=== PATIENT | female | born 2000 | race Caucasian/White ===

== ENCOUNTER 2018-06-02 17:03 | Emergency (ER) | payer SELFPAY ==
--- NOTE | 2018-06-02 17:57 | EDM.PDOC ---
ED HPI GENERAL MEDICAL PROBLEM - General Chief Complaint: Abdominal Pain Stated Complaint: ABDOMINAL PAIN Time Seen by Provider: 06/02/18 17:53 Source of Information: Reports: Patient History Limitations: Reports: No Limitations - History of Present Illness INITIAL COMMENTS - FREE TEXT/NARRATIVE: HISTORY AND PHYSICAL: History of present illness: Patient is a 17-year-old female here with complaint of lower abdominal pain x 8 days. She states it started after having intercourse and has persisted since then. She states she has had vaginal spotting as well that gets worse after intercourse. She states she doesn't get periods and hasn't had one in 6 years since she has been on Depo. She has not received Depo in 7 months. She is not using any form of contraceptive at this time. States she isn't trying to prevent . She denies fevers, chills, nausea, vomiting, diarrhea, constipation. Review of systems: As per history of present illness and below otherwise all systems reviewed and negative. Past medical history: As per history of present illness and as reviewed below otherwise noncontributory. Surgical history: As per history of present illness and as reviewed below otherwise noncontributory. Social history: No reported history of drug or alcohol abuse. Family history: As per history of present illness and as reviewed below otherwise noncontributory. Physical exam: General: Patient sitting comfortably in no acute distress and nontoxic appearing HEENT: Atraumatic, normocephalic, pupils reactive, negative for conjunctival pallor or scleral icterus, mucous membranes moist, throat clear, neck supple, nontender, trachea midline. No meningeal signs. Lungs: Clear to auscultation, breath sounds equal bilaterally, chest nontender. Heart: S1S2, regular, negative for clicks, rubs, or overt murmur. Abdomen: Soft, nondistended, nontender. Negative for masses or hepatosplenomegaly. Negative for costovertebral tenderness. Pelvis: Stable nontender. Genitourinary: Deferred. Rectal: Deferred. Extremities: Atraumatic, negative for cords or calf pain. Neurovascular unremarkable. Neuro: Awake, alert, oriented. Cranial nerves II through XII unremarkable. Cerebellum unremarkable. Motor and sensory unremarkable throughout. Exam nonfocal. Notes: Diagnostics: UA, urine hcg, pelvic US Therapeutics: Toradol 30mg IM Prescriptions: None Impression: Ovarian cyst, abdominal pain Plan: 1. Motrin or tylenol as needed 2. Follow up with Policy Adviser, please call number provided to schedule appointment 3. Return to ED as needed as discussed Definitive disposition and diagnosis as appropriate pending reevaluation and review of above. Lower abdomen Pain Score (Numeric/FACES): 9 - Related Data Allergies Allergy/AdvReac Type Severity Reaction Status Date / Time lurasidone [From Latuda] Allergy Anxiety Verified 06/02/18 17:40 Home Meds: Home Meds clonazePAM [Klonopin] 1 mg PO DAILY 06/02/18 [History] lamoTRIgine [Lamictal] 100 mg PO DAILY 06/02/18 [History] Past Medical History Psychiatric History: Reports: Anxiety, Depression, Mood Swings - Past Surgical History HEENT Surgical History: Reports: Adenoidectomy, Tonsillectomy Social & Family History - Tobacco Use Smoking Status *Q: Current Every Day Smoker Years of Tobacco use: 5 Packs/Tins Daily: 0.5 - Caffeine Use Caffeine Use: Reports: Coffee, Energy Drinks, Soda, Tea - Recreational Drug Use Recreational Drug Use: Yes Drug Use in Last 12 Months: Yes Recreational Drug Type: Reports: Marijuana/Hashish Recreational Drug Use Frequency: Daily ED ROS GENERAL - Review of Systems Review Of Systems: ROS reveals no pertinent complaints other than HPI. ED EXAM, GI/ABD - Physical Exam Exam: See Below (see dictation) Course - Vital Signs Last Recorded V/S: Last Vital Signs Temp 99.1 F 06/02/18 17:36 Pulse 89 06/02/18 17:36 Resp 16 06/02/18 17:36 BP 122/78 06/02/18 17:36 Pulse Ox 99 06/02/18 17:36 - Orders/Labs/Meds Orders: Active Orders 24 hr Category Date Time Status CULTURE URINE [RM] Stat Lab 06/02/18 17:47 Received Labs: Laboratory Tests 06/02/18 06/02/18 Range/Units 17:47 17:47 Urine Color YELLOW Urine Appearance CLEAR Urine pH 6.0 (5.0-8.0) Ur Specific [place] 1.015 (1.001-1.035) Urine Protein NEGATIVE (NEGATIVE) mg/dL Urine Glucose (UA) NEGATIVE (NEGATIVE) mg/dL Urine Ketones NEGATIVE (NEGATIVE) mg/dL Urine Occult Blood MODERATE H (NEGATIVE) Urine Nitrite NEGATIVE (NEGATIVE) Urine Bilirubin NEGATIVE (NEGATIVE) Urine Urobilinogen 0.2 (<2.0) EU/dL Ur Leukocyte Esterase NEGATIVE (NEGATIVE) Urine RBC 0-2 (0-2/HPF) Urine WBC 8-10 (0-5/HPF) Ur Epithelial Cells RARE (NONE-FEW) Urine Bacteria RARE (NEGATIVE) Urine HCG, Qual NEGATIVE (NEGATIVE) Meds: Medications Discontinued Medications Generic Name Dose Route Start Last Admin Trade Name Sherin PRN Reason Stop Dose Admin Ketorolac Tromethamine 30 mg 06/02/18 20:11 Toradol IM 06/02/18 20:12 ONETIME ONE Departure - Departure Time of Disposition: 20:21 Disposition: Home, Self-Care 01 Condition: Good Clinical Impression: Ovarian cyst, Abdominal pain - Discharge Information Referrals: PCP,None [Primary Care Provider] - Forms: ED Department Discharge Additional Instructions: The following information is given to patients seen in the emergency department who are being discharged to home. This information is to outline your options for follow-up care. We provide all patients seen in our emergency department with a follow-up referral. The need for follow-up, as well as the timing and circumstances, are variable depending upon the specifics of your emergency department visit. If you don't have a primary care physician on staff, we will provide you with a referral. We always advise you to contact your personal physician following an emergency department visit to inform them of the circumstance of the visit and for follow-up with them and/or the need for any referrals to a consulting specialist. The emergency department will also refer you to a specialist when appropriate. This referral assures that you have the opportunity for follow-up care with a specialist. All of these measure are taken in an effort to provide you with optimal care, which includes your follow-up. Under all circumstances we always encourage you to contact your private physician who remains a resource for coordinating your care. When calling for follow-up care, please make the office aware that this follow-up is from your recent emergency room visit. If for any reason you are refused follow-up, please contact the [facility] Emergency Department at and asked to speak to the emergency department charge nurse. [facility] [address] [place] [id number] [facility] Primary Care - Women's Health [id number], [place] [address] 1. Motrin or tylenol as needed 2. Follow up with Policy Adviser, please call number provided to schedule appointment 3. Return to ED as needed as discussed - My Orders Last 24 Hours: My Active Orders 06/02/18 17:47 CULTURE URINE [RM] Stat - Assessment/Plan Last 24 Hours: My Active Orders 06/02/18 17:47 CULTURE URINE [RM] Stat
[2018-06-02] MEDS ORDERED: Ketorolac 30 MG/ML SDV IM ONE (20:11)
--- NOTE | 2018-06-02 20:18 | US ---
INDICATION: Pain TECHNIQUE: Ultrasound pelvis transabdominal and transvaginal transvaginal for better assessment or to better visualize the endometrium. Real-time sonographic images with spectral and color Doppler imaging of the ovaries were obtained. COMPARISON: None FINDINGS: Uterus: 5.4 x 3.7 x 2.5 cm. Normal echotexture of the myometrium. No masses. Endometrium: Transvaginal imaging was performed to better evaluate the endometrium. Endometrial thickness measures 6 mm. No sign of endometrial mass or fluid. Right ovary measures 2.3 x 2.7 x 3.0 cm and left ovary measures 1.1 x 0.6 x 1.0 cm. Simple appearing right ovarian cyst measuring 2.0 centimeters. Left ovary is seen transabdominally and grossly unremarkable. Normal blood flow is demonstrated in both ovaries. Cul-de-sac: Small free fluid with low level echoes. IMPRESSION: 1. Right ovarian cyst measuring 2.0 centimeters with small free fluid in the pelvic cul-de-sac which could represent recent cyst rupture. 2. Diminutive but unremarkable left ovary. 3. Unremarkable sonographic appearance of the uterus. Dictated by Anshul Pang MD @ Jun 02 2018 8:12PM Signed by Dr. Anshul Pang @ Jun 02 2018 8:17PM
== END 2018-06-02 20:35 | disposition home or self-care (01) ==
LOC: MW.ED 17:03
DX: N83.201 Unspecified ovarian cyst, right side (principal); F17.210 Nicotine dependence, cigarettes, uncomplicated; Z88.8 Allergy status to other drugs, medicaments and biological substances
CPT/HCPCS: 76856; 81001; 81025; 87086; 96372; 99284; J1885